=== PATIENT | female | born 1950 | race Caucasian/White ===

== ENCOUNTER 2017-03-21 05:50 | Inpatient (IN) | payer OTHER ==
--- NOTE | 2017-03-20 16:52 | GHP ---
[f rep st] PREOP HISTORY AND PHYSICAL DATE OF ADMISSION: 03/21/2017 HISTORY: The patient is a 66-year-old female who presents with a year of left hip pain. This is pr ogressively worsening. She has sharp pain, limited motion, pain on weight bearing, alteration of he r gait, and this is impacting even activities of daily living. Because of reflux, she is limited as to the anti-inflammatory meds that she can use, she does tolerate Celebrex. She has continued to c ontinue to try to do therapeutic exercise and maintain her range of motion. She is getting progress ively limited and has x-ray evidence of severe left hip osteoarthritis. A left total hip arthroplas ty is planned. PAST MEDICAL HISTORY: No known drug allergies. Medically she does have hypertension for which she uses lisinopril 10 mg and hydrochlorothiazide 12.5 mg tablets, 1 daily. She is using eyedrops, usin g Celebrex 200 mg p.o. daily. PAST SURGICAL HISTORY: Includes cervical and lumbar procedures, most recently a lumbar fusion. 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 She is a nonsmoker, never smoker. REVIEW OF SYSTEMS: Positive from a cardiopulmonary standpoint for hypertension, from the GI standpo int for reflux. PHYSICAL EXAM: GENERAL: The patient is a well developed, well-nourished female in no apparent dist ress. HEAD AND NECK: Normocephalic, atraumatic. CHEST: Clear. CARDIOVASCULAR: Regular rate and rhythm. ABDOMEN: Soft. NEUROLOGIC: She is alert and oriented x3. MUSCULOSKELETAL: Left hip no ntender over the greater trochanter. She has about 80 degrees of flexion only. External rotation o f about 40 degrees. She has really lost all internal rotation, very limited abduction. SKIN: Inta ct. NEUROVASCULAR: Intact. IMAGING: X-rays show loss of joint space, essentially [id number], degenerative lipping, subchondr al sclerosis. Left hip has severe osteoarthritis. IMPRESSION: Left hip osteoarthritis. PLAN: Left total hip arthroplasty. The benefits and risks of surgery have been reviewed. She unde rstands that the risks include infection, damage to blood vessels or nerves, failure or loosening of components and need for revision, hip dislocation, blood clot in the leg or lungs, bleeding and nee d for transfusion, possible leg length discrepancy. She has signed her consent form, and she wishes to proceed. /[id number]/MODL
[2017-03-21] MEDS ORDERED: FAMOTIDINE 20 MG TAB ONE (06:07)
[2017-03-21] MEDS ORDERED: CEFAZOLIN 2 GM/DEXTROSE/100 ML BAG IV ONE (06:07)
[2017-03-21] MEDS ORDERED: ACETAMINOPHEN 325 MG TAB ONE (06:07)
[2017-03-21] MEDS ORDERED: DEXAMETHASONE 4 MG/ML VIAL ONE ×2 (06:07→07:15)
[2017-03-21] MEDS ORDERED: LIDOCAINE 1% 5 ML SDV ONE (06:08)
[2017-03-21] MEDS ORDERED: LIDOCAINE 1% 5 ML SDV ID PRN (06:49)
[2017-03-21] MEDS ORDERED: LR 1,000 ML IV ONE (06:49)
[2017-03-21] MEDS ORDERED: EPINEPHrine 30 MG/30 ML MDV ONE (06:54)
[2017-03-21] MEDS ORDERED: ceFAZolin 1 GM/5 ML SYR ONE (06:56)
[2017-03-21] MEDS ORDERED: TRANEXAMIC ACID 2,080 MG in NS 100 ML IV ONE (07:00)
[2017-03-21] MEDS ORDERED: ROPI/epiNEPH/KETOROLAC JOINT COCKTAIL IU ONE (07:00)
[2017-03-21] MEDS ORDERED: FAMOTIDINE 20 MG TAB PO ONE (07:00)
[2017-03-21] MEDS ORDERED: CHLORHEXIDINE GLUC HIBICLENS 118 ML BTL TP ONE (07:00)
[2017-03-21] MEDS ORDERED: CEFAZOLIN 2 GM/DEXTR 100 ML IV ONE (07:00)
[2017-03-21] MEDS ORDERED: ACETAMINOPHEN 325 MG TAB PO ONE (07:00)
[2017-03-21] MEDS ORDERED: DEXAMETHASONE 4 MG/ML VIAL IVP ONE (07:00)
[2017-03-21] MEDS ORDERED: POVIDONE-IODINE 20 ML in SODIUM CL IRRIG SOLUTION 500 ML IRR ONE (07:00)
[2017-03-21] MEDS ORDERED: MIDAZOLAM 2 MG/2 ML VIAL ONE (07:02)
[2017-03-21] MEDS ORDERED: LIDOCAINE 2% 5 ML SDV ONE (07:10)
[2017-03-21] MEDS ORDERED: fentaNYL 100 MCG/2 ML INJ ONE (07:12)
[2017-03-21] MEDS ORDERED: PROPOFOL 200 MG/20 ML VIAL ONE (07:13)
[2017-03-21] MEDS ORDERED: ONDANSETRON 4 MG/2 ML VIAL ONE (07:14)
[2017-03-21] MEDS ORDERED: METOCLOPRAMIDE 10 MG/2 ML VIAL ONE (07:15)
[2017-03-21] MEDS ORDERED: GLYCOPYRROLATE 0.2 MG/1 ML VIAL ONE (07:15)
[2017-03-21] MEDS ORDERED: PHENYLEPHRINE HCL 100 MCG/ML SYR ONE ×2 (08:04→09:48)
[2017-03-21] MEDS ORDERED: LACTULOSE 20 GM/30 ML UDCUP PO PRN (10:21)
[2017-03-21] MEDS ORDERED: PHARMACY PAIN CONSULT 1 EA MISC PRN (10:21)
[2017-03-21] MEDS ORDERED: ONDANSETRON DISINTEGRATING 4 MG TAB PO PRN (10:21)
[2017-03-21] MEDS ORDERED: TEMAZEPAM 15 MG CAP PO PRN (10:21)
[2017-03-21] MEDS ORDERED: PROMETHAZINE HCL 25 MG SUPPR PR PRN (10:21)
[2017-03-21] MEDS ORDERED: POLYETHYLENE GLYCOL 3350 17 GM PKT PO PRN (10:21)
[2017-03-21] MEDS ORDERED: DIPHENOXYLATE/ATROPINE LOMOTIL 1 TAB PO PRN (10:21)
[2017-03-21] MEDS ORDERED: MAGNESIUM HYDROXIDE 30 ML UDCUP PO PRN (10:21)
[2017-03-21] MEDS ORDERED: BISACODYL 10 MG SUPP PR PRN (10:21)
[2017-03-21] MEDS ORDERED: ONDANSETRON 4 MG/2 ML VIAL IVP PRN (10:21)
[2017-03-21] MEDS ORDERED: KETOROLAC 30 MG/1 ML SDV IVP PRN (10:21)
[2017-03-21] MEDS ORDERED: CYCLOBENZAPRINE 10 MG TAB PO PRN (10:21)
[2017-03-21] MEDS ORDERED: diphenhydrAMINE 25 MG CAP PO PRN (10:21)
[2017-03-21] MEDS ORDERED: METOCLOPRAMIDE 10 MG/2 ML VIAL IVP PRN (10:21)
[2017-03-21] MEDS ORDERED: LR 1,000 ML IV SCH (10:30)
--- NOTE | 2017-03-21 10:59 | GOP ---
[f rep st] OPERATIVE REPORT DATE OF OPERATION: 03/21/2017 SURGEON: Toby Zabala MD HAND RIGGER: Arthur Faustin, [facility], LSA. ANESTHESIOLOGIST: Angel Lewis MD. PREOPERATIVE DIAGNOSIS: Left hip osteoarthritis. POSTOPERATIVE DIAGNOSIS: Left hip osteoarthritis. PROCEDURE PERFORMED: Left total hip arthroplasty. FINDINGS: SPECIMENS: Include the femoral head. ESTIMATED BLOOD LOSS: About 100 cc. INDICATIONS: The patient is a 66-year-old female, who has had progressive left hip pain and limited motion, alteration of her gait, impact on activities of daily living. Her x-rays show [id number] osteoarthritis of the left hip with subchondral sclerosis and degenerative lipping, decreased joint space. Left total hip arthroplasty is planned. DESCRIPTION OF PROCEDURE: The patient was taken to the operating room and lying with left side down . A spinal anesthetic was administered by Dr. Lewis. She received preoperative 2 g of Ancef . She also received a dose of tranexamic acid. She was then rolled right side down on a [employer] egboard and her pelvis placed vertically and supported there in neutral position. The left lower ex tremity and hip were prepped and draped free in the usual fashion with chlorhexidine. I used a post erior approach to the left hip using a gently curving incision over the posterior aspect of the grea ter trochanter. Dissection was carried down to subcutaneous tissue. I incised through the IT band, carried this through the trochanteric bursa into the gluteal fascia. This allowed me to expose the posterior aspect of the left hip joint. The sciatic nerve was palpated and was maintained safely p osterior through the case. I identified the piriformis. It was released and a tag suture of FiberW stanford placed through it. The more distal short rotators were also tagged with FiberWire for later rep air. I opened the joint capsule. I placed a pin in the pelvis above the hip joint and a drill poin t in the trochanter for a pre-dislocation leg length measurement. My goal was to lengthen minimally . The hip was gently dislocated. I used a calcar cutting guide, leaving about 10 mm of calcar, and an oscillating saw was used to cut the neck. I placed acetabular retractors. I excised degenerati ve labrum. I started reaming at around 50, and I medialized the acetabulum, then started enlarging. I reamed to a 53. No bone cyst needed grafting. I used a 54 Regenerex cup with limited superior holes, and this was driven into place with excellent fit and bone quality in about 40 degrees of ope sanjay angle and about 25 degrees of anteversion. I placed a trial liner. I then addressed the femor al side. I used a retractor to elevate the calcar so I could expose the femoral neck. I gained ent jen to the canal with an awl. I used a reamer to lateralize a bit. I then started in small broac hes, for Taperloc standard stems. I started with a 5, and I progressed up to a size 12, which was a solid fit with good rotational stability. I found that the standard offset was appropriate. I did trial reductions with a 36 mm head. The hip was stable. I then went back to the acetabular compon ent and placed the +3 Max-ROM E1 liner, which is vitamin E infused in crosslink polyethylene. I the n press fit a 12 mm standard offset Taperloc Complete stem. I used a 36 mm Biolox ceramic head with a standard neck. This was driven over the Quijano taper fit and the hip was reduced. Overall, I gayle gthened her by my measurements just a couple millimeters, and she had excellent stability including in adduction and internal rotation. Hip was stable in external rotation as well. Copious antibioti c irrigation was used including irrigation with a dilute Betadine solution, and then this was furthe r flushed with antibiotic saline. The wound looked good. I did not place a drain. I drilled 2 hol es in the posterior aspect of the greater trochanter, through which I tied down the capsular and ext ernal rotator sutures to do a posterior repair. The fascia was closed with interrupted [id number] ght sutures of 0 Mersilene and the subcutaneous tissue was closed in layers with Monocryl suture and Monoderm in the skin, glue, Telfa, and a large Tegaderm. COMPLICATIONS: There were no complications. DRAINS: No drains. COUNTS: All counts were correct. DISPOSITION: The patient was taken in stable condition to recovery. My surgical services director was a medical necessity for this total joint replacement. SUMMARY OF COMPONENTS: This is a Biomet total hip system, all components press fit. The acetabulum was a 54 mm limited hole Regenerex cup. The liner is a +3 MaxROM E1 liner. The femoral side has a 12 mm standard offset Taperloc Complete stem with a 36 mm ceramic head, standard neck. /[id number]/MODL
[2017-03-21] MEDS: ACETAMINOPHEN 325 MG TAB PO SCH ×3 (11:53→23:35)
[2017-03-21] MEDS: ceFAZolin 2 GM/DEXTROSE 100 ML IV SCH ×2 (13:51→21:30)
[2017-03-21] MEDS: oxyCODONE IR 5 MG TAB PO PRN ×2 (13:55→18:38)
[2017-03-21] MEDS: PRESERVISION AREDS2 FORMULA EYE VIT 1 EACH PO SCH (20:10)
[2017-03-21] MEDS: ASPIRIN 325 MG TAB PO SCH (20:10)
[2017-03-21] MEDS: SENNOSIDES/DOCUSATE SODIUM TAB PO SCH (20:11)
[2017-03-21] MEDS: FAMOTIDINE 20 MG TAB PO SCH (20:11)
[2017-03-21] MEDS ORDERED: AMITRIPTYLINE HCL 25 MG TAB PO SCH (21:00)
[2017-03-22] MEDS: oxyCODONE IR 5 MG TAB PO PRN (02:25)
[2017-03-22] MEDS: ACETAMINOPHEN 325 MG TAB PO SCH (05:31)
[2017-03-22 05:33] LABS: HEMATOCRIT 26.7 % (38.0-47.0); HEMOGLOBIN 8.8 g/dL (12.6-16.3)
[2017-03-22 07:26] VITALS: BP 108/50; RESP 16; TEMP 97.9
--- NOTE | 2017-03-22 07:41 | SOAPPROG ---
SOAP Progress Note Assessment/Plan: Assessment: 03/22/17. POD#1 L PABLITO, pain controlled with oxy, min drainage, Hct 26.7, xray fine, has been up Plan: 03/22/17 07:40 PT/OT, then home , oxy , asa Objective: Vital Signs Temp Pulse Resp BP Pulse Ox 36.6 C 91 16 108/50 L 91 L 03/22/17 07:23 03/22/17 07:23 03/22/17 07:23 03/22/17 07:23 03/22/17 07:23 Laboratory Results 03/22/17 04:20 03/21/17 03/22/17 03/23/17 05:59 05:59 05:59 Intake Total 3275 300 Output Total 800 Balance 4625 300 ICD10 Worksheet Patient Problems: Problems Problem Status Onset Lumbar stenosis Acute
[2017-03-22] MEDS: FAMOTIDINE 20 MG TAB PO SCH (08:24)
[2017-03-22] MEDS: PRESERVISION AREDS2 FORMULA EYE VIT 1 EACH PO SCH (08:24)
[2017-03-22] MEDS: ASPIRIN 325 MG TAB PO SCH (08:24)
[2017-03-22] MEDS: SENNOSIDES/DOCUSATE SODIUM TAB PO SCH (08:24)
--- NOTE | 2017-03-22 08:31 | PDIAF ---
- Diagnosis Code Status: Full Code - Medication Management Discharge Medications: Medications to Continue on Transfer Lisinopril/Hctz 10/12.5 mg [Zestoretic/Prinzide 10/12.5MG (*)] 1 ea PO DAILY 05/20 [Last Taken 03/20/17] C/E/Zn/Cu/OM3/DHA/EPA/LUT/ZEAX [Preservision Areds 2 Softgel] 1 each PO BID [Last Taken 03/11/17] Multivitamins [Multivitamin (*)] 1 each PO DAILY 08/20/15 [Last Taken 03/11/17] Amitriptyline HCl [Elavil 50 mg (*)] 50 mg PO HS 03/15/17 [Last Taken 03/20/17] Aspirin [Aspirin 81mg (*)] 81 mg PO DAILY 03/15/17 [Last Taken 03/11/17] Herbals/Supplements -Info Only 1 ea PO DAILY 03/15/17 [Last Taken 03/20/17] Acetaminophen [Tylenol 325mg (*)] 325 mg PO DAILY PRN 03/21/17 [Last Taken 03/20] Aspirin [Aspirin 325 mg (*)] 325 mg PO DAILY #0 tab 03/22/17 [Last Taken Unknown ] oxyCODONE IR [Oxycodone Ir (*)] 5 - 10 mg PO Q3HRS PRN #0 tab 03/22/17 [Last Taken Unknown] Discharge Medications: Refer to the Discharge Home Medication list for PRN reason. - Orders Services needed: Physical Therapy Diet Recommendation: no restrictions on diet Diet Texture: Regular Texture Diet Date to Remove Sutures/[place]: 04/05/17 - Follow Up Care Current Providers and Referrals: Mehnaz Stanley MD [Primary Care Provider] -
[2017-03-22] MEDS ORDERED: LISINOPRIL/HCTZ 10/12.5 MG 1 EA TAB PO SCH (09:00)
[2017-03-22 12:12] VITALS: PULSE 79; O2SAT 92
== END 2017-03-22 11:19 | disposition home health service (06) | DRG 470 ==
LOC: F3N 05:50
PROVIDERS: ADMIT Orthopaedic Surgery; ATTEND Orthopaedic Surgery
PROC: 0SRB04A Replacement of Left Hip Joint with Ceramic on Polyethylene Synthetic Substitute, Uncemented, Open Approach (ICD-10-PCS; principal; 2017-03-21 07:15)
DX: M16.12 Unilateral primary osteoarthritis, left hip (principal); I10 Essential (primary) hypertension; K21.9 Gastro-esophageal reflux disease without esophagitis
CPT/HCPCS: 97110-GP; 97116-GP; 97161-GP; 97165-GO; 97530-GP; G8978-GP-CK; G8979-GP-CJ; G8980-GP-CI; G8987-GO-CI; G8988-GO-CI; G8989-GO-CI; J0171; J0690; J1100; J1885; J2250; J2370; J2405; J2704; J2765; J2795; J3010

== ENCOUNTER → 2017-07-20 | Outpatient (CLI) | payer OTHER | LOC: CIMAGING 09:46 | PROVIDERS: ATTEND Family Medicine | DX: M17.12 Unilateral primary osteoarthritis, left knee (principal) | CPT/HCPCS: 73562-PO ==

== ENCOUNTER → 2017-07-22 | Outpatient (CLI) | payer OTHER | LOC: CIMAGING 08:47 | PROVIDERS: ATTEND Family Medicine | DX: M25.562 Pain in left knee (principal) | CPT/HCPCS: 76882-PO ==

== ENCOUNTER 2017-11-21 16:47 | Emergency (ER) | payer OTHER ==
[2017-11-21 17:01] VITALS: TEMP 98.2
--- NOTE | 2017-11-21 17:01 | CPEKG ---
Heart Rate: 93 RR Interval: 645 P-R Interval: 180 QRSD Interval: 94 QT Interval: 356 QTC Interval: 443 P [place]: 25 QRS [place]: 12 T Wave [place]: 14 EKG Severity - BORDERLINE ECG - EKG Impression: SINUS RHYTHM EKG Impression: PROBABLE LEFT ATRIAL ABNORMALITY Electronically Signed By: Mahesh Caballero 21-Nov-2017 20:21:51
[2017-11-21] MEDS ORDERED: KETOROLAC 15 MG/1 ML SDV IVP ONE (17:13)
[2017-11-21] MEDS ORDERED: ASPIRIN 81 MG CHEWABLE TAB PO ONE (17:13)
[2017-11-21 17:16] LABS: PLATELET COUNT 265 10^3/uL (150-400)
--- NOTE | 2017-11-21 17:26 | EDPHY ---
H & P Stated Complaint: RIGHT SIDED CHEST PAIN, radiates to back Time Seen by Provider: 11/21/17 17:01 HPI/ROS: This pt. c/o R. upper chest pain, sharp in nature 7/10 in intensity radiating to her R. scapular region since yesterday afternoon. Symptoms worsen with inspiration and with R. arm movement. She also reports dyspnea on exertion since the onset of pain yesterday. She describing more winded with walking than usual. She has not had this sharp pain in her chest before. She has not taken medication for the pain. She was brought in by private vehicle by her for evaluation of her symptoms. ROS: No recent fevers or chills. No other constitutional symptoms HEENT: No URI symptoms or other complaints Pulmonary: As per HPI. No coughing lately. Cardiovascular: No heart palpitations. No leg swelling or calf pain. No lightheadedness. GI: No belly pain, nausea or vomiting. : No complaints Endocrine: No complaints Integumentary: No rash or pallor Neuro: No numbness tingling or weakness. Complete review of symptoms is otherwise negative. Source: Patient Exam Limitations: No limitations - Personal History Current Tetanus/Diphtheria Vaccine: Yes Current Tetanus Diphtheria and Acellular Pertussis (TDAP): No Tetanus Vaccine Date: >10 YRS - Medical/Surgical History PMH: Obesity Hx Asthma: No Hx Chronic Respiratory Disease: No Hx Diabetes: No Hx Cardiac Disease: Yes Hx Renal Disease: No Hx Cirrhosis: No Hx Alcoholism: No Hx HIV/AIDS: No Hx Splenectomy or Spleen Trauma: No Other PMH: GERD, HTN, lumbar/cerv fusion, anxiety, ELEONORA-O2 at night, mitral valve prolapse, high chol, left hip replacement, henry, hysterectomy - Family History Significant Family History: No pertinent family hx - Social History Smoking Status: Never smoked Alcohol Use: Occasionally Drug Use: None - Physical Exam Exam: Vital signs are notable for hypertension 175/106 and mild hypoxia on room air 93 -95% General Appearance: Pleasant obese 67-year-old female Alert, no distress. Eyes: Pupils equal and round no pallor or injection. ENT, Mouth: Mucous membranes moist. Respiratory: There are no retractions, lungs are clear to auscultation. Cardiovascular: Regular rate and rhythm. No murmur gallop rub. No JVD. No peripheral edema. Gastrointestinal: Abdomen is soft and nontender, no masses, bowel sounds normal. Back: Patient has tenderness in the right rhomboid region that reproduces her pain in that area. However she feels her chest pain is a separate entity. Neurological: GCS 15 with no focal neuro deficits. Skin: Warm and dry, no rashes. Musculoskeletal: Neck is supple nontender. Extremities are symmetrical, full range of motion. Psychiatric: Mood and affect are normal DIFFERENTIAL DIAGNOSIS: After history and physical exam differential diagnosis was considered for PE, GERD with esophageal spasm. Myocardial ischemic disease , PTX, pneumonia, Chest -wall source of pain, discogenic pain. Constitutional: Initial Vital Signs Temperature (C) 36.8 C 11/21/17 16:57 Heart Rate 96 11/21/17 16:57 Respiratory Rate 18 11/21/17 16:57 Blood Pressure 175/106 H 11/21/17 16:57 O2 Sat (%) 95 11/21/17 16:57 O2 Delivery Mode Room Air Allergies/Adverse Reactions: No Known Allergies Allergy (Verified 03/15/17 11:08) Home Medications: Medication Instructions Recorded Lisinopril/Hctz 10/12.5 mg 1 ea PO DAILY 05/13/14 [Zestoretic/Prinzide 10/12.5MG (*)] C/E/Zn/Cu/OM3/DHA/EPA/LUT/ZEAX 1 each PO BID 08/20/15 [Preservision Areds 2 Softgel] Multivitamins [Multivitamin (*)] 1 each PO DAILY 08/20/15 Amitriptyline HCl [Elavil 50 mg 50 mg PO HS 03/15/17 (*)] Aspirin [Aspirin 81mg (*)] 81 mg PO DAILY 03/15/17 Herbals/Supplements -Info Only 1 ea PO DAILY 03/15/17 Acetaminophen [Tylenol 325mg (*)] 325 mg PO DAILY PRN 03/21/17 Aspirin [Aspirin 325 mg (*)] 325 mg PO DAILY #0 tab 03/22/17 oxyCODONE IR [Oxycodone Ir (*)] 5 - 10 mg PO Q3HRS PRN #0 tab 03/22/17 Methocarbamol [Robaxin 750 mg (*)] 750 - 1,500 mg PO QID PRN #30 tab 01/15/18 Metoprolol Tartrate [Lopressor 25 25 mg PO DAILY #30 tab 11/21/17 mg (*)] Pantoprazole Sodium [Protonix 40mg 40 mg PO DAILY #30 tab 11/21/17 (RX)] Medical Decision Making - Diagnostics EKG Interpretation: 12 lead EKG performed shortly after arrival indication chest pain rule out [place] Sinus rhythm performed at 4:58 p.m. at a rate of 93 Intervals: P R of 180, QRS of 94, QTC of 443 [place]: P of 25, QRS of 12, T of 14 ST segments: Normal throughout Overall assessment sinus rhythm without evidence of acute ischemia Imaging Results: Imaging Impressions Chest/Thorax CTA 11/21/17 17:44 Impression: 1. No evidence of thrombopulmonary embolic disease. 2. Stable mild dilatation of the ascending thoracic aorta without dissection. Results called and discussed with Dr. Mahesh Caballero on November 21, 2017 at 1843 hours. Imaging: Discussed imaging studies w/ freight caller Radiologist ED Course/Re-evaluation: IV, monitor, aspirin 324 CBC and chemistries including troponin are normal. Patient's D-dimer was elevated. This prompted CT angio chest to rule out PE. The CT ruled out pulmonary embolism. It did reveal stable mild dilatation of the ascending aorta at 3.9 cm. Toradol IV with mild improvement followed by Maalox and Levsin after review of studies with further improvement. Patient's hypertension improved without intervention from her initial high read. However given ongoing mild hypertension I discussed antihypertensives with patient she reveals that she is not taking any antihypertensive at this time citing a low blood pressure after her hip surgery. I discussed her ascending aorta size-top normal at 3.9 cm concerning for potential early Steve aneurysm or dilatation diet on the importance of good blood pressure control with this. He agreed to start metoprolol. In terms of her chest pain at with its onset while eating a hamburger and history of GERD currently untreated I suspect this patient has esophageal spasm causing her chest pain given negative cardiac workup with normal EKG and troponin and no other associated symptoms to suggest a cardiac source. I think that her upper back pain is attributable to rhomboid muscle source as palpation of this area reproduces her back pain. This may be a stress response flush muscle tension to her anxiety about her chest pain. We also ruled out PE. Will start her on Protonix for her GERD. I spoke with Dr. Huang on-call for her physician, Dr. Stanley outlining the patient's visit and findings as well as medications prescribed and/or to facilitate close follow-up with Dr. Stanley & past on radiology's recommendation for repeat CT chest in 1-2 years to evaluate ascending aorta size. At discharge the patient is comfortable. Answered all for her and her ' s questions. She understands need to return emergency department should she have any significant worsening of her symptoms are onset of new symptoms. - Data Points Laboratory Results: Laboratory Results 11/21/17 17:08 11/21/17 17:08 11/21/17 11/21/17 11/21/17 17:08 17:08 17:08 WBC RBC Hgb Hct MCV MCH MCHC RDW Plt Count MPV Neut % (Auto) Lymph % (Auto) Vernon % (Auto) Eos % (Auto) Baso % (Auto) Nucleat RBC Rel Count Absolute Neuts (auto) Absolute Lymphs (auto) Absolute Monos (auto) Absolute Eos (auto) Absolute Basos (auto) Absolute Nucleated RBC Immature Gran % Immature Gran # PT 13.8 SEC SEC (12.0-15.0) INR 1.07 (0.83-1.16) APTT 30.7 SEC SEC (23.0-38.0) D-Dimer 0.96 ug/mLFEU H ug/mLFEU (0.00-0.50) Sodium 141 mEq/L mEq/L (135-145) Potassium 4.1 mEq/L mEq/L (3.5-5.2) Chloride 96 mEq/L L mEq/L (97-110) Carbon Dioxide 31 mEq/l mEq/l (22-31) Anion Gap 14 mEq/L mEq/L (8-16) BUN 15 mg/dL mg/dL (7-23) Creatinine 0.9 mg/dL mg/dL (0.6-1.0) Estimated GFR > 60 Glucose 97 mg/dL mg/dL (70-100) Calcium 9.6 mg/dL mg/dL (8.5-10.4) Troponin I < 0.012 ng/mL ng/mL (0.000-0.034) 11/21/17 17:08 WBC 5.38 10^3/uL 10^3/uL (3.80-9.50) RBC 4.92 10^6/uL 10^6/uL (4.18-5.33) Hgb 14.2 g/dL g/dL (12.6-16.3) Hct 42.2 % % (38.0-47.0) MCV 85.8 fL fL (81.5-99.8) MCH 28.9 pg pg (27.9-34.1) MCHC 33.6 g/dL g/dL (32.4-36.7) RDW 14.0 % % (11.5-15.2) Plt Count 265 10^3/uL 10^3/uL (150-400) MPV 10.2 fL fL (8.7-11.7) Neut % (Auto) 52.6 % % (39.3-74.2) Lymph % (Auto) 32.5 % % (15.0-45.0) Vernon % (Auto) 9.5 % % (4.5-13.0) Eos % (Auto) 4.1 % % (0.6-7.6) Baso % (Auto) 1.1 % % (0.3-1.7) Nucleat RBC Rel Count 0.0 % % (0.0-0.2) Absolute Neuts (auto) 2.83 10^3/uL 10^3/uL (1.70-6.50) Absolute Lymphs (auto) 1.75 10^3/uL 10^3/uL (1.00-3.00) Absolute Monos (auto) 0.51 10^3/uL 10^3/uL (0.30-0.80) Absolute Eos (auto) 0.22 10^3/uL 10^3/uL (0.03-0.40) Absolute Basos (auto) 0.06 10^3/uL 10^3/uL (0.02-0.10) Absolute Nucleated RBC 0.00 10^3/uL 10^3/uL (0-0.01) Immature Gran % 0.2 % % (0.0-1.1) Immature Gran # 0.01 10^3/uL 10^3/uL (0.00-0.10) PT INR APTT D-Dimer Sodium Potassium Chloride Carbon Dioxide Anion Gap BUN Creatinine Estimated GFR Glucose Calcium Troponin I Medications Given: Discontinued Medications Al Hydroxide/Mg Hydroxide (Maalox Susp) 30 ml PO EDNOW ONE Stop: 11/21/17 18:56 Last Admin: 11/21/17 19:02 Dose: 30 ml Aspirin (Aspirin) 324 mg PO EDNOW ONE Stop: 11/21/17 17:14 Last Admin: 11/21/17 17:26 Dose: 324 mg Hyoscyamine Sulfate (Levsin, Hyomax-Sl) 0.125 mg PO EDNOW ONE Stop: 11/21/17 18:56 Last Admin: 11/21/17 19:02 Dose: 0.125 mg Ketorolac Tromethamine (Toradol) 15 mg IVP EDNOW ONE Stop: 11/21/17 17:14 Last Admin: 11/21/17 17:26 Dose: 15 mg Departure - Departure Disposition: Home, Routine, Self-Care Clinical Impression: Rhomboid muscle pain Chest pain Qualifiers: Chest pain type: unspecified Qualified Code(s): R07.9 - Chest pain, unspecified GERD (gastroesophageal reflux disease) Qualifiers: Esophagitis presence: esophagitis presence not specified Qualified Code(s): K21.9 - Gastro-esophageal reflux disease without esophagitis Hypertension Qualifiers: Hypertension type: essential hypertension Qualified Code(s): I10 - Essential ( primary) hypertension Condition: Fair Instructions: Chest Pain (ED), Gastroesophageal Reflux Disease (ED), Hypertension (ED) Additional Instructions: Diagnoses: 1. Chest pain 2. GERD 3. Hypertension 4. Rhomboid muscle strain Your aorta in your chest is the upper limits of normal in size 3.9 cm with 4 cm being the top normal. You may have an early aortic aneurysm. For this reason it is important to control your blood pressure Plan: Start metoprolol 25 mg a day For acid reflux that may have caused esophageal spasm start Protonix 40 mg a day. Have a bland diet to her symptoms resolved Consider 2 by 4s under the post at the head of your bed to prop up your bed slightly to lessen acid reflux at night Further rhomboid muscle-methocarbamol muscle relaxant and Tylenol for pain as well stretches as described Maalox in addition for chest pain if needed Follow up with your primary care physician for a recheck in 3-7 days Return emergency department for any significant worsening despite the treatment plan. Referrals: Mehnaz Stanley MD [Primary Care Provider] - As per Instructions Prescriptions: Methocarbamol [Robaxin 750 mg (*)] 750 - 1,500 mg PO QID PRN #30 tab PRN Reason: Muscle Spasms Metoprolol Tartrate [Lopressor 25 mg (*)] 25 mg PO DAILY #30 tab Pantoprazole Sodium [Protonix 40mg (RX)] 40 mg PO DAILY #30 tab
[2017-11-21 17:51] LABS: INR 1.07 (0.83-1.16); PROTIME(PATIENT) 13.8 SEC (12.0-15.0)
[2017-11-21] MEDS ORDERED: IOPAMIDOL (ISOVUE 370) 100 ML BTL IV ONE (17:59)
[2017-11-21] MEDS ORDERED: HYOSCYAMINE SULFATE 0.125 MG TAB PO ONE (18:55)
[2017-11-21] MEDS ORDERED: MAG HYDROX/AL HYDROX/SIMETH 30 ML UDCUP PO ONE (18:55)
[2017-11-21 19:03] VITALS: BP 134/87
[2017-11-21 19:13] VITALS: PULSE 74; RESP 18; O2SAT 91
== END 2017-11-21 19:25 | disposition home or self-care (01) ==
LOC: CED 16:47
DX: K21.9 Gastro-esophageal reflux disease without esophagitis (principal); I10 Essential (primary) hypertension; M79.1 Myalgia; Z79.82 Long term (current) use of aspirin
CPT/HCPCS: 71275-PO; 80048-PO; 84484-PO; 85025-PO; 85378-PO; 85610-PO; 85730-PO; 96374; J1885; Q9967

== ENCOUNTER 2018-08-08 11:25 | Emergency (ER) | payer OTHER ==
--- NOTE | 2018-08-08 11:48 | EDPHY ---
H & P Stated Complaint: L leg pain and swelling x 2 weeks, SOB x 1 week. Time Seen by Provider: 08/08/18 11:28 HPI/ROS: Chief Complaint: Leg pain and swelling HPI: 67-year-old woman with a history of hypertension in back pain is presenting with 2 weeks of left leg pain and swelling. She has had some intermittent shortness of breath for the last week. She saw her physical therapist today who was concerned that she might have a DVT or PE and sent here for further evaluation. She occasionally has some pain with deep inspiration but not consistently. No lightheadedness or fainting. No central chest pain. Some intermittent occasional mild shortness of breath. No fevers or chills. No cough. She is having persistent left leg pain, no erythema. Is complaining of edema. ROS: 10 systems were reviewed and were negative except those elements noted in the HPI. PMH: Hypertension Social History: No smoking, no alcohol, no recreational drug use Family History: non-contributory Physical Exam: Gen: Awake, Alert, No Distress HEENT: Nose: no rhinorrhea Eyes: PERRLA, EOMI Mouth: Moist mucosa Neck: Supple, no JVD Chest: nontender, lungs clear to auscultation Heart: S1, S2 normal, no murmur Abd: Soft, non-tender, no guarding Back: no CVA tenderness, no midline tenderness Ext: Patient has some mild edema of her left leg which is 1 cm greater than her right. Is nonpitting. She has calf tenderness to palpation. No erythema. Skin: no rash Neuro: CN II-XII intact, Sensation grossly intact, Strength 5/5 in bilateral upper and lower extremities - Personal History Current Tetanus Diphtheria and Acellular Pertussis (TDAP): Yes Tetanus Vaccine Date: within 10 years - Medical/Surgical History Hx Asthma: No Hx Chronic Respiratory Disease: No Hx Diabetes: No Hx Cardiac Disease: Yes Hx Renal Disease: No Hx Cirrhosis: No Hx Alcoholism: No Hx HIV/AIDS: No Hx Splenectomy or Spleen Trauma: No Other PMH: GERD, HTN, lumbar/cerv fusion, anxiety, ELEONORA-O2 at night, mitral valve prolapse, high chol, left hip replacement, cholecystectomy, hysterectomy - Social History Smoking Status: Never smoked Constitutional: Initial Vital Signs Temperature (C) 37 C 08/08/18 11:32 Heart Rate 75 08/08/18 11:32 Respiratory Rate 16 10/02/18 11:32 Blood Pressure 125/87 H 08/08/18 11:32 O2 Sat (%) 93 08/08/18 11:32 O2 Delivery Mode Room Air Allergies/Adverse Reactions: No Known Allergies Allergy (Verified 08/08/18 11:34) Home Medications: Medication Instructions Recorded Multivitamins [Multivitamin (*)] 08/20/15 Amitriptyline HCl 08/08/18 Metoprolol Tartrate 08/08/18 Triamterene 08/08/18 Medical Decision Making ED Course/Re-evaluation: Ultrasound is negative for DVT. Symptoms are consistent with muscle strain. Will discharge with follow-up with her primary care physician. Departure - Departure Disposition: Home, Routine, Self-Care Clinical Impression: Leg pain Condition: Good Instructions: Leg Pain (ED) Additional Instructions: Follow up with primary care physician in 3-4 days for further evaluation. Alternate acetaminophen (1000 mg) with ibuprofen (400 mg) every 4 hours as needed for pain. Referrals: Mehnaz Stanley MD [Primary Care Provider] - As per Instructions
[2018-08-08 12:46] VITALS: BP 92/81
== END 2018-08-08 12:42 | disposition home or self-care (01) ==
LOC: CED 11:25
DX: M79.662 Pain in left lower leg (principal); I10 Essential (primary) hypertension
CPT/HCPCS: 93971-PO

== ENCOUNTER → 2018-10-03 | Outpatient (CLI) | payer OTHER | LOC: CIMAGING 09:59 | PROVIDERS: ATTEND Family Medicine | DX: Z12.31 Encounter for screening mammogram for malignant neoplasm of breast (principal) ==